=== PATIENT | female | born 2005 | race African-American/Black ===

== ENCOUNTER 2025-03-25 14:09 | Outpatient (CLI) | payer BC | END 2025-03-25 14:10 | disposition home or self-care (01) | LOC: DTY/OP 14:09 | PROVIDERS: ATTEND Student in an Organized Health Care Education/Training Program | DX: Z01.89 Encounter for other specified special examinations (principal); Z68.36 Body mass index [BMI] 36.0-36.9, adult | CPT/HCPCS: 97802 ==

== ENCOUNTER 2025-07-11 19:42 | Emergency (ER) | payer BC ==
[2025-07-11] MEDS ORDERED: Rabies Vaccine Human 2.5 UNITS VIAL ONE (21:09)
[2025-07-11] MEDS ORDERED: Rabies Immune Globulin/PF 300 UNITS/ML VIAL IM SCH (21:30)
[2025-07-11] MEDS ORDERED: Amoxicillin/Potassium Clav 875 MG TAB ONE (23:44)
== END 2025-07-12 00:10 | disposition home or self-care (01) ==
LOC: ERS 19:42
DX: S81.852A Open bite, left lower leg, initial encounter (principal); Z23 Encounter for immunization; W54.0XXA Bitten by dog, initial encounter
CPT/HCPCS: 12002; 90375; 90471; 90472; 90675; 90715; 96372

== ENCOUNTER → 2025-07-15 | Day surgery (SDC) | payer BC ==
[~2025-07-15] MED LIST: Rabies Vaccine Human 2.5 UNITS VIAL ONE
== END ==
LOC: ER/OP 15:59
PROVIDERS: ATTEND Student in an Organized Health Care Education/Training Program
DX: Z29.14 Encounter for prophylactic rabies immune globulin (principal)
CPT/HCPCS: 90675

== ENCOUNTER 2025-07-19 19:07 | Emergency (ER) | payer BC | END 2025-07-19 20:12 | disposition left against medical advice (07) | LOC: ERS 19:07 | DX: Z53.21 Procedure and treatment not carried out due to patient leaving prior to being seen by health care provider (principal) ==